=== PATIENT | male | born 1950 | race Caucasian/White ===

== ENCOUNTER 2019-07-10 08:57 | Emergency (ER) | payer MEDICARE | END 2019-07-10 11:00 | disposition home or self-care (01) | LOC: ERS 08:57 | DX: L03.011 Cellulitis of right finger (principal); I49.9 Cardiac arrhythmia, unspecified; I48.91 Unspecified atrial fibrillation; I10 Essential (primary) hypertension; J44.9 Chronic obstructive pulmonary disease, unspecified ==

== ENCOUNTER 2019-09-18 16:43 | Inpatient (IN) | payer MEDICARE ==
[2019-09-18] MEDS ORDERED: methylPREDNISolone Sod Succ/PF 125 MG/2 ML VIAL ONE (17:12)
[2019-09-18] MEDS ORDERED: Magnesium 2 GM/50 ML BAG (IN WATER) ONE (17:13)
[2019-09-18 17:17] LABS: #Basophils 0.1 thou/uL (0.0-0.2); #Eosinphils 0.2 thou/uL (0.0-0.7); #Lymphocytes 1.9 thou/uL (1.20-3.40); #Monocytes 1.1 thou/uL (0.11-0.59); %Basophils 0.5 % (0.0-1.0); %Eosinophils 1.9 % (0.0-10.0); %Lymphocytes 15.4 % (21.0-51.0); %Monocytes 8.6 % (0.0-10.0); %Neutrophils 73.6 % (42.0-75.0); Hemoglobin 12.3 g/dL (14.0-18.0); Mean Corpuscular HGB CONC 29.4 g/dL (32.0-36.0); Mean Corpuscular Hemoglobin 30.6 pg (27.0-31.0); Mean Platelet Volume 7.6 fL (7.4-10.4); Platelet Count 239 thou/uL (130-400); RBC Distribution Width 13.4 % (11.5-14.5); Red Blood Cell (RBC) Count 4.02 mill/uL (4.70-6.10); White Blood Cell (WBC) Count 12.3 thou/uL (4.8-10.8)
[2019-09-18 17:18] LABS: Actual Bicarbonate (HCO3a) 55.3 mEq/L (22-28); Analyzer IN Cardio ER; Base Excess (BEa) 24.6 mEq/L (-2.0 to +3.0); Calcium, Ionized 1.14 mmol/L (1.12-1.30); Carboxyhemoglobin (COHb) 1.6 gm% (0.0-3.0); Hemoglobin (Hb) 13.1 g/dL (14.0-18.0); Potassium - ABG Lab 3.97 mmol/L (3.70-5.30); pH, Arterial 7.38 (7.35-7.45)
[2019-09-18 17:21] LABS: CO2 Tension 94.8 mmHg (35.0-45.0); O2 Tension (PaO2) 59.7 mmHg (> 80.0)
[2019-09-18 17:22] LABS: Puncture Site RRA
--- NOTE | 2019-09-18 17:23 | RAD ---
PORTABLE AP CHEST X-RAY: 09/18/19 HISTORY: Hypoxia. COMPARISON: 06/18/19. FINDINGS: Cardiac silhouette is magnified by projection but stable in size. Pulmonary vasculature is within nor mal limits. Bullous emphysematous changes are seen in the upper lobes bilaterally, much greater in th e right upper lobe. Linear densities are seen at the right lung base probably related to chronic lung changes and crowding of the bronchovascular markings. No definite new focal area of consolidation or pleural fluid is appreciated. Lung apices are partially obscured due to the patient's overlying jaw and mandible. No other interval change. IMPRESSION: 1. Chronic lung changes and evidence of COPD. 2. No acute cardiopulmonary process. POS: OFF
[2019-09-18] MEDS ORDERED: Albuterol Sulfate 2.5 mg/3 ml Neb ONE (17:26)
[2019-09-18] MEDS ORDERED: Albuterol Sulfate 2.5 mg/0.5 ml Neb ONE (17:26)
[2019-09-18 17:40] LABS: ALT (SGPT) 8 U/L (8-55); AST (SGOT) 11 U/L (5-34); Alkaline Phosphatase 50 U/L (40-110); BUN (Urea Nitrogen) 17 mg/dL (8.4-25.7); Bilirubin, Total 0.9 mg/dL (0.2-1.2); CK (CPK) 28 U/L (30-200); Calc. Creatinine Clearance 0 mL/min (70-130); Calcium 9.9 mg/dL (7.8-10.44); Estimated GFR-MDRD Greater than 90; Globulin 3.1 g/dL (2.4-3.5); Glucose 123 mg/dL (80-115); Magnesium 1.9 mg/dL (1.6-2.6); Protein, Total 7.1 g/dL (5.8-8.1)
[2019-09-18 17:58] LABS: Chloride 80 mmol/L (98-107); Potassium 4.2 mmol/L (3.5-5.1); Sodium 142 mmol/L (136-145)
[2019-09-18 18:01] LABS: Anion Gap 14 mmol/L (10-20)
[2019-09-18 18:06] LABS: Carbon Dioxide 52 mmol/L (23-31)
[2019-09-18] MEDS ORDERED: Sodium Chloride 0.9% 1,000 ML IV SCH (20:19)
[2019-09-18] MEDS ORDERED: Acetaminophen 325 MG TAB PO PRN ×2 (20:19→20:41)
[2019-09-18 20:38] VITALS: BMI 35.7
[2019-09-18] MEDS ORDERED: Bisacodyl 10 MG SUPP PR PRN (20:41)
[2019-09-18] MEDS ORDERED: Guaifenesin DM 100-10/5 ML UDCUP PO PRN (20:41)
[2019-09-18] MEDS ORDERED: Acetaminophen 650 MG Suppository PR PRN (20:41)
[2019-09-18 20:48] LABS: Troponin I 0.019 ng/mL (< 0.028)
[2019-09-18] MEDS ORDERED: AcetaZOLAMIDE 250 MG TAB PO SCH (21:00)
--- NOTE | 2019-09-18 21:20 | HP ---
REASON FOR ADMISSION: Acute respiratory failure with hypoxia and hypercarbia, acute on chronic COPD exacerbation. HISTORY OF PRESENTING ILLNESS: The patient gives history of progressive shortness of breath from last 4 days or so. The at bedside mentions that the patient's saturations were dropping down to 60% to 65% percent at home. He is on 2.5 L of nasal cannula 24/7 oxygen. He has had home health come check on him and he was confused, in addition to his saturations being low and she called EMS and the patient was brought here. The patient does not recall what exactly happened at home. He responds to verbal questions, but is confused. He follows verbal stimuli. No fever at home. He has dry cough, but occasional expectoration of green phlegm. The at bedside mentions that the patient does not ambulate much. He is essentially bedridden for the most part. PAST MEDICAL AND SURGICAL HISTORY: History of diastolic dysfunction, had EF of 55% on an echo done in May of 2019. Chronic respiratory failure on home oxygen, COPD, obesity, chronic AFib, hypertension, dyslipidemia, and hernia repair. CURRENT MEDICATIONS: The patient is on; 1. Lasix 40 mg daily. 2. Folic acid 1 mg p.o. daily. 3. Vitamin B12 of 1000 mcg p.o. daily. 4. Pradaxa 150 mg twice daily. 5. Albuterol nebulization q.6 hourly at home. 6. Aspirin 81 mg p.o. daily. 7. Coreg 12.5 mg p.o. twice daily. 8. Cardizem 30 mg p.o. three times daily. 9. Lisinopril 2.5 mg p.o. daily. 10. Crestor 40 mg p.o. daily. 11. Flomax 0.4 mg p.o. at bedtime. ALLERGIES: NO KNOWN DRUG ALLERGIES. PERSONAL HISTORY: Quit smoking eight months back prior to which has smoked 1 to 2 packs a day for nearly 40 years. Quit drinking alcohol 4 years back. Does not abuse drugs. Lives with his . FAMILY HISTORY: Mother is alive. She has chronic medical issues per . Father in his 70s. He had unknown cancer. The patient ambulates with a rolling walker, but mostly goes in a wheelchair. CODE STATUS: Full. Power of sports attorney is his . REVIEW OF SYSTEMS: Cannot be obtained as the patient is not fully oriented. PHYSICAL EXAMINATION: GENERAL: The patient is a 68-year-old male, who is currently not in any acute distress. VITAL SIGNS: Blood pressure 102/60, pulse 74 per minute, respiratory rate 24 per minute, and saturating 69% on 3 L nasal cannula and 94% on BiPAP. NECK: Supple. No elevated JVD. HEENT: Eyes, extraocular muscles intact. Pupils are reacting to light. Oral cavity, mucous membranes are dry. No exudates or congestion. CARDIOVASCULAR SYSTEM: S1 and S2 heard. Regular rhythm. RESPIRATORY: Air entry 1+ bilateral. Scattered wheezes plus bilateral. ABDOMEN: Soft. Bowel sounds heard. No tenderness, rigidity, or guarding. EXTREMITIES: Chronic peripheral edema. No calf tenderness. VASCULAR SYSTEM: Peripheral pulses 1+ bilateral. No ischemic ulcerations or gangrene. CENTRAL NERVOUS SYSTEM: The patient is currently not oriented, but moves all extremities. He moves both upper extremities well than lower extremities. PSYCHIATRIC SYSTEM: No obvious hallucinations or delusions, but accurate psychiatric history cannot be obtained as the patient is confused at present. LABORATORY DATA: EKG done shows atrial fibrillation at 61 beats per minute. White count of 12, H and H 12 and 41, platelet count 239, and MCV is 104 with 73% neutrophils. Blood gas done shows a pH of 7.38, pCO2 of 94, and pO2 of 59. Serum bicarb is 52, BUN 17, creatinine 0.8, serum glucose 123, lactic acid 2.5, and magnesium 1.9. AST, ALT, and alkaline phosphatase within normal limits. BNP 137. Albumin is 4.0. Chest x-ray done shows no acute infiltrate. CLINICAL IMPRESSION AND PLAN: The patient will be admitted to [facility] for acute on chronic respiratory failure with hypoxia and hypercarbia, acute on chronic COPD exacerbation. He will be empirically placed on Levaquin, DuoNeb q.6 hourly, and Solu-Medrol 40 mg IV q.6 hourly. The patient's bicarb is elevated and we will place him on Diamox tablets as well. His systolic blood pressures are around 100. In view of this, we will hold lisinopril. He needs carvedilol and Cardizem in view of prior history of atrial fibrillation. We will continue his Pradaxa as before. We will consult Dr. Weaver, his pilot teacher. We will also continue his Crestor, Flomax, Dulera inhaler, folic acid, Zetia, and Pepcid as before. Echo with 2D Doppler for current LV function will be obtained. The patient has multiple medical issues and is a wheelchair bound as well. Code status was discussed with the patient and his at bedside. They say they have not decided on any other option, but for now, he will be a full code. We will also obtain Palliative Care consultation as well. Job ID: [id number]
[2019-09-18 21:27] LABS: Lactic Acid 0.9 mmol/L (0.5-2.2)
[2019-09-18] MEDS: Tamsulosin HCl 0.4 MG CAP PO SCH (21:58)
[2019-09-18] MEDS: Senokot S 8.6-50 MG TAB PO SCH (21:59)
[2019-09-18] MEDS: Famotidine 20 MG TAB PO SCH (21:59)
[2019-09-18] MEDS: Sodium Chloride 0.9% 1,000 ML IV SCH (22:02)
[2019-09-18] MEDS: Dabigatran 150 mg Capsule PO SCH (22:03)
[2019-09-18] MEDS: Carvedilol 6.25 MG TAB PO SCH (22:08)
[2019-09-19] MEDS: methylPREDNISolone Sod Succ 40 MG VIAL IVP SCH ×2 (00:04→05:49)
[2019-09-19] MEDS ORDERED: methylPREDNISolone Sod Succ 40 MG VIAL IVP SCH (05:00)
[2019-09-19 05:50] LABS: #Lymphocytes 0.8 thou/uL (1.20-3.40); #Monocytes 0.1 thou/uL (0.11-0.59); #Neutrophils 8.4 thou/uL (1.40-6.50); %Eosinophils 0.1 % (0.0-10.0); %Lymphocytes 8.7 % (21.0-51.0); %Monocytes 0.6 % (0.0-10.0); %Neutrophils 90.6 % (42.0-75.0); Hemoglobin 11.7 g/dL (14.0-18.0); Mean Corpuscular HGB CONC 30.6 g/dL (32.0-36.0); Mean Corpuscular Hemoglobin 31.3 pg (27.0-31.0); Mean Platelet Volume 7.9 fL (7.4-10.4); Platelet Count 214 thou/uL (130-400); RBC Distribution Width 13.5 % (11.5-14.5); Red Blood Cell (RBC) Count 3.75 mill/uL (4.70-6.10); White Blood Cell (WBC) Count 9.3 thou/uL (4.8-10.8)
[2019-09-19] MEDS: Sodium Chloride 0.9% 1,000 ML IV SCH (05:53)
[2019-09-19 06:13] LABS: BUN (Urea Nitrogen) 16 mg/dL (8.4-25.7); Calc. Creatinine Clearance 171 mL/min (70-130); Calcium 9.4 mg/dL (7.8-10.44); Estimated GFR-MDRD Greater than 90; Glucose 179 mg/dL (80-115)
[2019-09-19 06:22] LABS: Anion Gap 16 mmol/L (10-20); Carbon Dioxide 39 mmol/L (23-31); Chloride 87 mmol/L (98-107); Potassium 3.6 mmol/L (3.5-5.1); Sodium 138 mmol/L (136-145)
[2019-09-19] MEDS: Mometasone/Formoterol 120 PUFF INHALER INH SCH ×2 (08:01→18:38)
[2019-09-19] MEDS: Senokot S 8.6-50 MG TAB PO SCH ×2 (08:43→20:47)
[2019-09-19] MEDS: Folic Acid 1 MG TAB PO SCH (08:43)
[2019-09-19] MEDS: Dabigatran 150 mg Capsule PO SCH ×2 (08:43→20:47)
[2019-09-19] MEDS: Ezetimibe 10 MG TAB PO SCH (08:43)
[2019-09-19] MEDS: Famotidine 20 MG TAB PO SCH ×2 (08:43→20:45)
[2019-09-19] MEDS: predniSONE 20 MG TAB PO SCH ×2 (08:43→20:45)
[2019-09-19] MEDS: Rosuvastatin 20 MG TAB PO SCH (08:43)
[2019-09-19] MEDS: AcetaZOLAMIDE 250 MG TAB PO SCH (08:44)
[2019-09-19] MEDS: Aspirin Chewable 81 MG TAB PO SCH (08:44)
[2019-09-19] MEDS: Cyanocobalamin (Vitamin B-12) 1,000 MCG TAB PO SCH (08:44)
[2019-09-19] MEDS: Carvedilol 6.25 MG TAB PO SCH ×2 (08:44→20:46)
[2019-09-19] MEDS ORDERED: FLU VACC TS2019-20(65YR UP)/PF 180 MCG/0.5 ML SYRINGE IM ONE ×2 (09:00→11:00)
[2019-09-19] MEDS ORDERED: Prevnar 13-Val Conj/PF 0.5 ML SYRINGE IM ONE (09:00)
[2019-09-19] MEDS ORDERED: Furosemide 20 MG TAB PO SCH (09:00)
[2019-09-19] MEDS ORDERED: Lisinopril 2.5 MG TAB PO SCH (09:00)
--- NOTE | 2019-09-19 09:06 | CON ---
DATE OF CONSULTATION: HISTORY OF PRESENT ILLNESS: Huan Mcpherson is a 68-year-old morbidly obese gentleman with multiple medical problems, presented with shortness of breath and low oxygen saturations. Apparently some nurses called, his saturations in the 80s. He had crackles in his chest. Told him to come to the ER. His initial x-ray shows bibasilar atelectatic changes, no obvious pneumonia. This morning, he is awake, alert, and responsive. PAST MEDICAL HISTORY: 1. A former smoker, end-stage COPD with recurrent respiratory acidosis, respiratory failure. 2. Hypertension. 3. Cardiac arrhythmia, atrial fibrillation. 4. Sleep apnea. PAST SURGICAL HISTORY: Otherwise included hernia repair, ankle surgery. HOME MEDICINES: 1. Flomax 0.4. 2. Symbicort twice a day. 3. Aspirin. 4. Coreg 12.5. 5. Cardizem 30 t.i.d. 6. Pradaxa 150. 7. Lasix 40 b.i.d. 8. Folic acid 1. 9. Zestril 2.5. 10. Crestor 40. REVIEW OF SYSTEMS: Otherwise 10 point negative. PHYSICAL EXAMINATION: GENERAL: This morning, he is awake, alert, responsive. VITAL SIGNS: Saturations on 4 L are 95%, decreased to 3 L, respiratory rate 20, temperature 97, blood pressure 111/83. EXTREMITIES: Trace edema. CHEST: Decreased breath sounds, no wheezing. CARDIAC: Normal S1, S2. No gallops. ABDOMEN: No masses. LABORATORY DATA: PO2 is 59, pCO2 is 94% 3 L nasal O2, compensated respiratory acidosis. Lactic acid is mildly elevated. Lytes are normal. ASSESSMENT: Acute on chronic respiratory failure, sleep apnea, cardiac arrhythmia, morbid obesity. PLAN: He appears to be at his stable level. Switch him over to oral medication. PT, supportive care. Consultation note, 70 minutes, 50% of direct patient care. Job ID: [id number]
--- NOTE | 2019-09-19 14:42 | PDOC.HOSPP ---
- Subjective Encounter Date: 09/19/19 Encounter Time: 12:15 Subjective: is ambulating with PT in the room sob is better awake and responds to verbal stimuli - Objective Vital Signs & Weight: Vital Signs (12 hours) Temp Pulse Pulse Pulse Pulse Resp BP 09/19/19 13:40 99 20 09/19/19 11:06 98.1 F 09/19/19 10:06 88 77 09/19/19 08:44 116/63 09/19/19 08:41 89 88 09/19/19 07:57 95 20 09/19/19 07:48 09/19/19 07:27 97.2 F L 09/19/19 04:00 97.8 F BP BP Pulse Ox Pulse Ox Pulse Ox Pulse Ox 09/19/19 13:40 99 09/19/19 11:06 09/19/19 10:06 112/63 122/79 09/19/19 08:44 09/19/19 08:41 116/63 93 L 88 L 92 L 09/19/19 07:57 100 09/19/19 07:48 96 09/19/19 07:27 09/19/19 04:00 Weight Weight 271 lb 9.752 oz Most Recent Monitor Data Heart Rate from ECG 83 NIBP 120/75 NIBP BP-Mean 90 Respiration from ECG 17 SpO2 93 I&O: 09/18/19 09/19/19 09/20/19 06:59 06:59 06:59 Intake Total 1663 Output Total 860 Balance 803 Result Diagrams: 09/19/19 05:33 09/19/19 05:33 Hospitalist ROS - Medication Medications: Active Medications Generic Name Dose Route Start Last Admin Trade Name Freq PRN Reason Stop Dose Admin Acetazolamide 250 mg 09/19/19 09:00 09/19/19 08:44 Diamox PO 250 mg DAILY MEGAN Administration Albuterol/Ipratropium 3 ml 09/19/19 01:00 09/19/19 13:40 Duoneb NEB 3 ml [id number] MEGAN Administration Aspirin 81 mg 09/19/19 09:00 09/19/19 08:44 Aspirin Chewable PO 81 mg DAILY MEGAN Administration Carvedilol 12.5 mg 09/18/19 21:00 09/19/19 08:44 Coreg PO 12.5 mg BID MEGAN Administration Cyanocobalamin 1,000 mcg 09/19/19 09:00 09/19/19 08:44 Vitamin B-12 PO 1,000 mcg DAILY MEGAN Administration Dabigatran 150 mg 09/18/19 21:00 09/19/19 08:43 Pradaxa PO 150 mg BID MEGAN Administration Diltiazem HCl 30 mg 09/18/19 21:00 09/19/19 08:44 Cardizem PO 30 mg TID MEGAN Administration Ezetimibe 10 mg 09/19/19 09:00 09/19/19 08:43 Zetia PO 10 mg DAILY MEGAN Administration Famotidine 20 mg 09/18/19 21:00 09/19/19 08:43 Pepcid PO 20 mg BID MEGAN Administration Folic Acid 1 mg 09/19/19 09:00 09/19/19 08:43 Folvite PO 1 mg DAILY MEGAN Administration Mometasone Furoate/Formoterol Fumar 2 puff 09/19/19 06:30 09/19/19 08:01 Dulera 200 Mcg/5 Mcg Inhaler INH 2 puff BID-RT MEGAN Administration Prednisone 20 mg 09/19/19 09:00 09/19/19 08:43 Prednisone PO 20 mg BID MEGAN Administration Rosuvastatin Calcium 40 mg 09/19/19 09:00 09/19/19 08:43 Crestor PO 40 mg DAILY MEGAN Administration Senna/Docusate Sodium 2 tab 09/18/19 21:00 09/19/19 08:43 Senokot S PO 2 tab BID MEGAN Administration Tamsulosin HCl 0.4 mg 09/18/19 21:00 09/18/19 21:58 Flomax PO 0.4 mg HS MEGAN Administration - Exam General Appearance: NAD, awake alert Eye: PERRL, anicteric sclera ENT: no oropharyngeal lesions, moist mucosa Neck: supple, no JVD Heart: RRR, no murmur Respiratory: no wheezes, no rales, rhonchi Gastrointestinal: soft, non-tender, non-distended, normal bowel sounds Extremities: no cyanosis, 1+ LE edema Neurological: cranial nerve grossly intact, no focal deficits Psychiatric: A&O x 3 Hosp A/P (1) Acute on chronic respiratory failure with hypoxia and hypercapnia Code(s): J96.21 - ACUTE AND CHRONIC RESPIRATORY FAILURE WITH HYPOXIA; J96.22 - ACUTE AND CHRONIC RESPIRATORY FAILURE WITH HYPERCAPNIA Status: Acute (2) COPD exacerbation Code(s): J44.1 - CHRONIC OBSTRUCTIVE PULMONARY DISEASE W (ACUTE) EXACERBATION Status: Acute (3) Acute metabolic encephalopathy Code(s): G93.41 - METABOLIC ENCEPHALOPATHY Status: Resolved (4) Acute on chronic diastolic heart failure Code(s): I50.33 - ACUTE ON CHRONIC DIASTOLIC (CONGESTIVE) HEART FAILURE Status : Chronic (5) CAD (coronary artery disease) Code(s): I25.10 - ATHSCL HEART DISEASE OF [place] CORONARY ARTERY W/O ANG PCTRS Status: Chronic Qualifiers: Coronary Disease-Associated Artery/Lesion type: [place] artery [place] vs. transplanted heart: [place] heart Associated angina: without angina Qualified Code(s): I25.10 - Atherosclerotic heart disease of [place] coronary artery without angina pectoris (6) Chronic anticoagulation Code(s): Z79.01 - DRAMATIC TEACHER (CURRENT) USE OF ANTICOAGULANTS Status: Chronic (7) DM2 (diabetes mellitus, type 2) Status: Chronic Qualifiers: Diabetes mellitus mcc insulin use: without petroleum terminal plant operator use (8) Dyslipidemia Code(s): E78.5 - HYPERLIPIDEMIA, UNSPECIFIED Status: Chronic (9) HTN (hypertension) Code(s): I10 - ESSENTIAL (PRIMARY) HYPERTENSION Status: Chronic Qualifiers: Hypertension type: essential hypertension Qualified Code(s): I10 - Essential (primary) hypertension (10) Obesity (BMI 30-39.9) Code(s): E66.9 - OBESITY, UNSPECIFIED Status: Chronic - Plan is off bipap and is on nasal canula now continue nebs, prdnisone, levaquin, diamox home meds asp, coreg, pradaxa, cardizem tid, zetia, flomax, crestor, lasix bid, B12 and folic acid hemostable mobilize as tolerated dc plan in 24hrs if stable
[2019-09-19] MEDS: Tamsulosin HCl 0.4 MG CAP PO SCH (20:45)
[2019-09-20] MEDS: Mometasone/Formoterol 120 PUFF INHALER INH SCH ×2 (07:13→19:06)
[2019-09-20] MEDS: Furosemide 40 MG TAB PO SCH (09:17)
[2019-09-20] MEDS: Senokot S 8.6-50 MG TAB PO SCH ×2 (09:17→20:48)
[2019-09-20] MEDS: Folic Acid 1 MG TAB PO SCH (09:17)
[2019-09-20] MEDS: predniSONE 20 MG TAB PO SCH ×2 (09:17→20:47)
[2019-09-20] MEDS: AcetaZOLAMIDE 250 MG TAB PO SCH (09:17)
[2019-09-20] MEDS: Carvedilol 6.25 MG TAB PO SCH ×2 (09:17→21:43)
[2019-09-20] MEDS: Cyanocobalamin (Vitamin B-12) 1,000 MCG TAB PO SCH (09:17)
[2019-09-20] MEDS: Aspirin Chewable 81 MG TAB PO SCH (09:17)
[2019-09-20] MEDS: Famotidine 20 MG TAB PO SCH ×2 (09:18→20:47)
[2019-09-20] MEDS: Rosuvastatin 20 MG TAB PO SCH ×2 (09:18→20:48)
[2019-09-20] MEDS: Ezetimibe 10 MG TAB PO SCH ×2 (09:18→20:47)
[2019-09-20] MEDS: Dabigatran 150 mg Capsule PO SCH ×2 (09:18→20:46)
[2019-09-20 09:46] LABS: #Lymphocytes 0.9 thou/uL (1.20-3.40); #Monocytes 0.8 thou/uL (0.11-0.59); #Neutrophils 13.3 thou/uL (1.40-6.50); %Basophils 0.1 % (0.0-1.0); %Eosinophils 0.1 % (0.0-10.0); %Lymphocytes 5.7 % (21.0-51.0); %Monocytes 5.1 % (0.0-10.0); Hemoglobin 12.4 g/dL (14.0-18.0); Mean Corpuscular HGB CONC 30.4 g/dL (32.0-36.0); Mean Corpuscular Hemoglobin 31.5 pg (27.0-31.0); Mean Platelet Volume 7.9 fL (7.4-10.4); Platelet Count 214 thou/uL (130-400); RBC Distribution Width 13.6 % (11.5-14.5); Red Blood Cell (RBC) Count 3.94 mill/uL (4.70-6.10)
[2019-09-20 09:58] LABS: BUN (Urea Nitrogen) 18 mg/dL (8.4-25.7); Calc. Creatinine Clearance 166 mL/min (70-130); Calcium 9.7 mg/dL (7.8-10.44); Estimated GFR-MDRD Greater than 90; Glucose 230 mg/dL (80-115)
[2019-09-20 10:08] LABS: Anion Gap 14 mmol/L (10-20); Carbon Dioxide 40 mmol/L (23-31); Chloride 92 mmol/L (98-107); Potassium 3.7 mmol/L (3.5-5.1); Sodium 142 mmol/L (136-145)
--- NOTE | 2019-09-20 13:43 | PDOC.HOSPP ---
- Subjective Encounter Date: 09/20/19 Encounter Time: 12:00 Subjective: feels better, oriented well at bedside has ambulated a bit with PT - Objective Vital Signs & Weight: Vital Signs (12 hours) Temp Pulse Resp BP Pulse Ox 09/20/19 13:37 79 20 99 09/20/19 10:42 97.8 F 09/20/19 09:17 124/55 L 09/20/19 08:00 94 L 09/20/19 07:23 98.4 F 09/20/19 07:11 85 17 100 09/20/19 03:38 97.5 F L Weight Weight 271 lb 9.752 oz Most Recent Monitor Data Heart Rate from ECG 76 NIBP 117/78 NIBP BP-Mean 91 Respiration from ECG 14 SpO2 99 I&O: 09/19/19 09/20/19 09/21/19 06:59 06:59 06:59 Intake Total 1663 2000 Output Total 860 1775 200 Balance 803 225 -200 Result Diagrams: 09/20/19 09:31 09/20/19 09:31 Hospitalist ROS - Medication Medications: Active Medications Generic Name Dose Route Start Last Admin Trade Name Freq PRN Reason Stop Dose Admin Acetazolamide 250 mg 09/19/19 09:00 09/20/19 09:17 Diamox PO 250 mg DAILY MEGAN Administration Albuterol/Ipratropium 3 ml 09/19/19 01:00 09/20/19 13:37 Duoneb NEB 3 ml [id number] MEGAN Administration Aspirin 81 mg 09/19/19 09:00 09/20/19 09:17 Aspirin Chewable PO 81 mg DAILY MEGAN Administration Carvedilol 12.5 mg 09/18/19 21:00 09/20/19 09:17 Coreg PO 12.5 mg BID MEGAN Administration Cyanocobalamin 1,000 mcg 09/19/19 09:00 09/20/19 09:17 Vitamin B-12 PO 1,000 mcg DAILY MEGAN Administration Dabigatran 150 mg 09/18/19 21:00 09/20/19 09:18 Pradaxa PO 150 mg BID MEGAN Administration Diltiazem HCl 30 mg 09/18/19 21:00 09/20/19 09:17 Cardizem PO 30 mg TID MEGAN Administration Famotidine 20 mg 09/18/19 21:00 09/20/19 09:18 Pepcid PO 20 mg BID MEGAN Administration Folic Acid 1 mg 09/19/19 09:00 09/20/19 09:17 Folvite PO 1 mg DAILY MEGAN Administration Furosemide 40 mg 09/20/19 07:30 09/20/19 09:17 Lasix PO 40 mg DAILY-AC MEGAN Administration Levofloxacin 500 mg 09/20/19 06:00 09/20/19 06:27 Levaquin PO 09/25/19 06:01 500 mg 0600 MEGAN Administration Mometasone Furoate/Formoterol Fumar 2 puff 09/19/19 06:30 09/20/19 07:13 Dulera 200 Mcg/5 Mcg Inhaler INH 2 puff BID-RT MEGAN Administration Prednisone 20 mg 09/19/19 09:00 09/20/19 09:17 Prednisone PO 20 mg BID MEGAN Administration Senna/Docusate Sodium 2 tab 09/18/19 21:00 09/20/19 09:17 Senokot S PO 2 tab BID MEGAN Administration Tamsulosin HCl 0.4 mg 09/18/19 21:00 09/19/19 20:45 Flomax PO 0.4 mg HS MEGAN Administration - Exam General Appearance: NAD, awake alert Eye: PERRL, anicteric sclera ENT: no oropharyngeal lesions, moist mucosa Neck: supple, no JVD Heart: RRR, no murmur Respiratory: no wheezes, no rales, rhonchi Gastrointestinal: soft, non-tender, non-distended, normal bowel sounds Extremities: no cyanosis, no edema Neurological: cranial nerve grossly intact, no focal deficits Psychiatric: A&O x 3 Hosp A/P (1) Acute on chronic respiratory failure with hypoxia and hypercapnia Code(s): J96.21 - ACUTE AND CHRONIC RESPIRATORY FAILURE WITH HYPOXIA; J96.22 - ACUTE AND CHRONIC RESPIRATORY FAILURE WITH HYPERCAPNIA Status: Resolved (2) COPD exacerbation Code(s): J44.1 - CHRONIC OBSTRUCTIVE PULMONARY DISEASE W (ACUTE) EXACERBATION Status: Acute (3) Acute metabolic encephalopathy Code(s): G93.41 - METABOLIC ENCEPHALOPATHY Status: Resolved (4) Acute on chronic diastolic heart failure Code(s): I50.33 - ACUTE ON CHRONIC DIASTOLIC (CONGESTIVE) HEART FAILURE Status : Chronic (5) CAD (coronary artery disease) Code(s): I25.10 - ATHSCL HEART DISEASE OF [place] CORONARY ARTERY W/O ANG PCTRS Status: Chronic Qualifiers: Coronary Disease-Associated Artery/Lesion type: [place] artery [place] vs. transplanted heart: [place] heart Associated angina: without angina Qualified Code(s): I25.10 - Atherosclerotic heart disease of [place] coronary artery without angina pectoris (6) Chronic anticoagulation Code(s): Z79.01 - JAIL (CURRENT) USE OF ANTICOAGULANTS Status: Chronic (7) DM2 (diabetes mellitus, type 2) Status: Chronic Qualifiers: Diabetes mellitus termination clerk insulin use: without termination clerk use (8) Dyslipidemia Code(s): E78.5 - HYPERLIPIDEMIA, UNSPECIFIED Status: Chronic (9) HTN (hypertension) Code(s): I10 - ESSENTIAL (PRIMARY) HYPERTENSION Status: Chronic Qualifiers: Hypertension type: essential hypertension Qualified Code(s): I10 - Essential (primary) hypertension (10) Obesity (BMI 30-39.9) Code(s): E66.9 - OBESITY, UNSPECIFIED Status: Chronic - Plan is on nasal canula and stable now continue nebs, prdnisone, levaquin, diamox home meds asp, coreg, pradaxa, cardizem tid, zetia, flomax, crestor, lasix bid, B12 and folic acid hemostable mobilize as tolerated dc plan in am if ok with pulm. d/w and patient at bedside transfer to medical floor
--- NOTE | 2019-09-20 20:45 | PRG ---
DATE OF SERVICE: 09/20/2019 SUBJECTIVE: Huan Mcpherson had no complaints. He is sitting up and watching football. No distress. OBJECTIVE: VITAL SIGNS: He is afebrile. Heart rate is in 70s, respiratory rate is 20, oximetry is 92% on 3 L up to 97 this afternoon. Blood pressure 101/67. Intake and output positive . LUNGS: Clear. HEART: Regular rhythm. ABDOMEN: Soft. LABORATORY DATA: White count 15, hemoglobin 12.4, platelets 214. Sodium 142, potassium 3.7, chloride 92, bicarb 40, BUN 18, creatinine 0.74. PH on admission 7.38, pCO2 of 94, pO2 of 59. IMPRESSION: 1. Chronic hypoxemic respiratory failure with hypercarbia. 2. Advanced chronic obstructive pulmonary disease. 3. Obesity. 4. History of hypertension. 5. History of atrial fibrillation. 6. History of sleep apnea. He is stable to move out of the intermediate care unit to a medical bed. He is probably getting close to being a candidate for discharge. Job ID: [id number]
[2019-09-20] MEDS: Tamsulosin HCl 0.4 MG CAP PO SCH (20:48)
[2019-09-21 06:46] LABS: BUN (Urea Nitrogen) 23 mg/dL (8.4-25.7); Calc. Creatinine Clearance 169 mL/min (70-130); Calcium 9.7 mg/dL (7.8-10.44); Estimated GFR-MDRD Greater than 90; Glucose 176 mg/dL (80-115)
[2019-09-21 06:55] LABS: Anion Gap 10 mmol/L (10-20); Chloride 91 mmol/L (98-107); Potassium 3.3 mmol/L (3.5-5.1); Sodium 142 mmol/L (136-145)
[2019-09-21 07:01] LABS: Carbon Dioxide 44 mmol/L (23-31)
[2019-09-21] MEDS: Mometasone/Formoterol 120 PUFF INHALER INH SCH ×2 (07:49→19:55)
[2019-09-21] MEDS: Furosemide 40 MG TAB PO SCH (08:15)
[2019-09-21] MEDS: Famotidine 20 MG TAB PO SCH ×2 (08:18→20:22)
[2019-09-21] MEDS: predniSONE 20 MG TAB PO SCH ×2 (08:18→20:22)
[2019-09-21] MEDS: Folic Acid 1 MG TAB PO SCH (08:18)
[2019-09-21] MEDS: Cyanocobalamin (Vitamin B-12) 1,000 MCG TAB PO SCH (08:18)
[2019-09-21] MEDS: Senokot S 8.6-50 MG TAB PO SCH ×2 (08:18→20:22)
[2019-09-21] MEDS: Aspirin Chewable 81 MG TAB PO SCH (08:18)
[2019-09-21] MEDS: Dabigatran 150 mg Capsule PO SCH ×2 (08:19→20:21)
[2019-09-21] MEDS: Carvedilol 3.125 MG TAB PO SCH ×2 (08:19→17:24)
[2019-09-21] MEDS: AcetaZOLAMIDE 250 MG TAB PO SCH (08:19)
--- NOTE | 2019-09-21 16:52 | PDOC.HOSPP ---
- Subjective Encounter Date: 09/21/19 Encounter Time: 08:45 Subjective: is sitting on bed, no sob feels better, no dizziness sbp low this am - Objective Vital Signs & Weight: Vital Signs (12 hours) Temp Pulse Resp BP BP Pulse Ox 09/21/19 15:39 98.0 F 93 20 114/79 93 L 09/21/19 12:33 80 16 09/21/19 11:19 98.2 F 80 20 98/66 92 L 09/21/19 08:19 93 L 09/21/19 07:16 97.6 F 77 18 92/54 L 93 L Weight Weight 272 lb 5 oz Most Recent Monitor Data Heart Rate from ECG 74 NIBP 119/77 NIBP BP-Mean 91 Respiration from ECG 19 SpO2 93 I&O: 09/20/19 09/21/19 09/22/19 06:59 06:59 06:59 Intake Total 1999 240 Output Total 1775 650 Balance 225 -410 Result Diagrams: 09/20/19 09:31 09/21/19 05:38 Hospitalist ROS - Medication Medications: Active Medications Generic Name Dose Route Start Last Admin Trade Name Irvingq PRN Reason Stop Dose Admin Acetazolamide 250 mg 09/19/19 09:00 09/21/19 08:19 Diamox PO 250 mg DAILY MEGAN Administration Albuterol/Ipratropium 3 ml 09/19/19 01:00 09/21/19 12:33 Duoneb NEB 3 ml [id number] MEGAN Administration Aspirin 81 mg 09/19/19 09:00 09/21/19 08:18 Aspirin Chewable PO 81 mg DAILY MEGAN Administration Carvedilol 3.125 mg 09/21/19 08:00 09/21/19 08:19 Coreg PO 3.125 mg BID-WM MEGAN Administration Cyanocobalamin 1,000 mcg 09/19/19 09:00 09/21/19 08:18 Vitamin B-12 PO 1,000 mcg DAILY MEGAN Administration Dabigatran 150 mg 09/18/19 21:00 09/21/19 08:19 Pradaxa PO 150 mg BID MEGAN Administration Diltiazem HCl 30 mg 09/18/19 21:00 09/21/19 14:38 Cardizem PO 30 mg TID MEGAN Administration Ezetimibe 10 mg 09/20/19 21:00 09/20/19 20:47 Zetia PO 10 mg HS MEGAN Administration Famotidine 20 mg 09/18/19 21:00 09/21/19 08:18 Pepcid PO 20 mg BID MEGAN Administration Folic Acid 1 mg 09/19/19 09:00 09/21/19 08:18 Folvite PO 1 mg DAILY MEGAN Administration Levofloxacin 500 mg 09/20/19 06:00 09/21/19 05:23 Levaquin PO 09/25/19 06:01 500 mg 0600 MEGAN Administration Mometasone Furoate/Formoterol Fumar 2 puff 09/19/19 06:30 09/21/19 07:49 Dulera 200 Mcg/5 Mcg Inhaler INH Not Given BID-RT MEGAN Prednisone 20 mg 09/19/19 09:00 09/21/19 08:18 Prednisone PO 20 mg BID MEGAN Administration Rosuvastatin Calcium 40 mg 09/20/19 21:00 09/20/19 20:48 Crestor PO 40 mg HS MEGAN Administration Senna/Docusate Sodium 2 tab 09/18/19 21:00 09/21/19 08:18 Senokot S PO 2 tab BID MEGAN Administration Tamsulosin HCl 0.4 mg 09/18/19 21:00 09/20/19 20:48 Flomax PO 0.4 mg HS MEGAN Administration - Exam General Appearance: awake alert Eye: PERRL, anicteric sclera ENT: no oropharyngeal lesions, moist mucosa Neck: supple, no JVD Heart: RRR, no murmur Respiratory: no wheezes, no rales, rhonchi Gastrointestinal: soft, non-tender, non-distended, normal bowel sounds Extremities: no cyanosis, 1+ LE edema Neurological: cranial nerve grossly intact, no focal deficits Psychiatric: normal affect, A&O x 3 Hosp A/P (1) Acute on chronic respiratory failure with hypoxia and hypercapnia Code(s): J96.21 - ACUTE AND CHRONIC RESPIRATORY FAILURE WITH HYPOXIA; J96.22 - ACUTE AND CHRONIC RESPIRATORY FAILURE WITH HYPERCAPNIA Status: Resolved (2) COPD exacerbation Code(s): J44.1 - CHRONIC OBSTRUCTIVE PULMONARY DISEASE W (ACUTE) EXACERBATION Status: Acute (3) Acute metabolic encephalopathy Code(s): G93.41 - METABOLIC ENCEPHALOPATHY Status: Resolved (4) Acute on chronic diastolic heart failure Code(s): I50.33 - ACUTE ON CHRONIC DIASTOLIC (CONGESTIVE) HEART FAILURE Status : Chronic (5) CAD (coronary artery disease) Code(s): I25.10 - ATHSCL HEART DISEASE OF [place] CORONARY ARTERY W/O ANG PCTRS Status: Chronic Qualifiers: Coronary Disease-Associated Artery/Lesion type: [place] artery [place] vs. 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 ANTICOAGULANTS Status: Chronic (7) DM2 (diabetes mellitus, type 2) Status: Chronic Qualifiers: Diabetes mellitus snf insulin use: without medical terminologist use (8) Dyslipidemia Code(s): E78.5 - HYPERLIPIDEMIA, UNSPECIFIED Status: Chronic (9) HTN (hypertension) Code(s): I10 - ESSENTIAL (PRIMARY) HYPERTENSION Status: Chronic Qualifiers: Hypertension type: essential hypertension Qualified Code(s): I10 - Essential (primary) hypertension (10) Obesity (BMI 30-39.9) Code(s): E66.9 - OBESITY, UNSPECIFIED Status: Chronic - Plan is on nasal canula and stable now continue nebs, prdnisone, levaquin, diamox home meds asp, reduced dose of coreg, pradaxa, cardizem tid, zetia, flomax, crestor, B12 and folic acid hemostable mobilize as tolerated dc plan in am sbp low this am, fall precautions. Has ambulated with PT yesterday
[2019-09-21] MEDS: Rosuvastatin 20 MG TAB PO SCH (20:21)
[2019-09-21] MEDS: Tamsulosin HCl 0.4 MG CAP PO SCH (20:21)
[2019-09-21] MEDS: Ezetimibe 10 MG TAB PO SCH (20:22)
[2019-09-22] MEDS: Mometasone/Formoterol 120 PUFF INHALER INH SCH (06:48)
[2019-09-22] MEDS: Cyanocobalamin (Vitamin B-12) 1,000 MCG TAB PO SCH (08:56)
[2019-09-22] MEDS: Senokot S 8.6-50 MG TAB PO SCH (08:56)
[2019-09-22] MEDS: predniSONE 20 MG TAB PO SCH (08:56)
[2019-09-22] MEDS: Famotidine 20 MG TAB PO SCH (08:56)
[2019-09-22] MEDS: Folic Acid 1 MG TAB PO SCH (08:58)
[2019-09-22] MEDS: Aspirin Chewable 81 MG TAB PO SCH (08:58)
[2019-09-22] MEDS: Carvedilol 3.125 MG TAB PO SCH (08:58)
[2019-09-22] MEDS: AcetaZOLAMIDE 250 MG TAB PO SCH (08:58)
[2019-09-22] MEDS: Dabigatran 150 mg Capsule PO SCH (08:58)
--- NOTE | 2019-09-22 13:31 | PDOC.HOSPP ---
- Subjective Encounter Date: 09/22/19 Encounter Time: 07:40 Subjective: breathing better, feels good prefers to go home, has home health - Objective Vital Signs & Weight: Vital Signs (12 hours) Temp Pulse Resp BP Pulse Ox Pulse Ox Pulse Ox 09/22/19 11:56 98.0 F 84 20 134/89 93 L 09/22/19 11:10 84 L 92 L 09/22/19 08:00 97.5 F L 83 16 116/75 92 L 09/22/19 06:46 74 16 94 L 09/22/19 04:00 97.6 F 74 16 127/81 94 L 09/22/19 01:51 97 Pulse Ox 09/22/19 11:56 09/22/19 11:10 90 L 09/22/19 08:00 09/22/19 06:46 09/22/19 04:00 09/22/19 01:51 Weight Weight 272 lb 5 oz Most Recent Monitor Data Heart Rate from ECG 74 NIBP 119/77 NIBP BP-Mean 91 Respiration from ECG 19 SpO2 93 I&O: 09/21/19 09/22/19 09/23/19 06:59 06:59 06:59 Intake Total 240 2075 Output Total 650 1325 Balance -410 750 Result Diagrams: 09/20/19 09:31 09/21/19 05:38 Hospitalist ROS - Medication Medications: Active Medications Generic Name Dose Route Start Last Admin Trade Name Freq PRN Reason Stop Dose Admin Acetazolamide 250 mg 09/19/19 09:00 09/22/19 08:58 Diamox PO 250 mg DAILY MEGAN Administration Albuterol/Ipratropium 3 ml 09/19/19 01:00 09/22/19 12:32 Duoneb NEB 3 ml [id number] MEGAN Administration Aspirin 81 mg 09/19/19 09:00 09/22/19 08:58 Aspirin Chewable PO 81 mg DAILY MEGAN Administration Carvedilol 3.125 mg 09/21/19 08:00 09/22/19 08:58 Coreg PO 3.125 mg BID-WM MEGAN Administration Cyanocobalamin 1,000 mcg 09/19/19 09:00 09/22/19 08:56 Vitamin B-12 PO 1,000 mcg DAILY MEGAN Administration Dabigatran 150 mg 09/18/19 21:00 09/22/19 08:58 Pradaxa PO 150 mg BID MEGAN Administration Diltiazem HCl 30 mg 09/18/19 21:00 09/22/19 08:56 Cardizem PO 30 mg TID MEGAN Administration Ezetimibe 10 mg 09/20/19 21:00 09/21/19 20:22 Zetia PO 10 mg HS MEGAN Administration Famotidine 20 mg 09/18/19 21:00 09/22/19 08:56 Pepcid PO 20 mg BID MEGAN Administration Folic Acid 1 mg 09/19/19 09:00 09/22/19 08:58 Folvite PO 1 mg DAILY MEGAN Administration Levofloxacin 500 mg 09/20/19 06:00 09/22/19 06:03 Levaquin PO 09/25/19 06:01 500 mg 0600 MEGAN Administration Mometasone Furoate/Formoterol Fumar 2 puff 09/19/19 06:30 09/22/19 06:48 Dulera 200 Mcg/5 Mcg Inhaler INH 2 puff BID-RT MEGAN Administration Prednisone 20 mg 09/19/19 09:00 09/22/19 08:56 Prednisone PO 20 mg BID MEGAN Administration Rosuvastatin Calcium 40 mg 09/20/19 21:00 09/21/19 20:21 Crestor PO 40 mg HS MEGAN Administration Senna/Docusate Sodium 2 tab 09/18/19 21:00 09/22/19 08:56 Senokot S PO 2 tab BID MEGAN Administration Tamsulosin HCl 0.4 mg 09/18/19 21:00 09/21/19 20:21 Flomax PO 0.4 mg HS MEGAN Administration - Exam General Appearance: awake alert Eye: PERRL, anicteric sclera ENT: no oropharyngeal lesions, moist mucosa Neck: supple, no JVD Heart: RRR, no murmur Respiratory: no wheezes, no rales Gastrointestinal: soft, non-tender, non-distended, normal bowel sounds Extremities: no cyanosis, no edema Neurological: cranial nerve grossly intact, no focal deficits Psychiatric: normal affect, A&O x 3 Hosp A/P (1) Acute on chronic respiratory failure with hypoxia and hypercapnia Code(s): J96.21 - ACUTE AND CHRONIC RESPIRATORY FAILURE WITH HYPOXIA; J96.22 - ACUTE AND CHRONIC RESPIRATORY FAILURE WITH HYPERCAPNIA Status: Resolved (2) COPD exacerbation Code(s): J44.1 - CHRONIC OBSTRUCTIVE PULMONARY DISEASE W (ACUTE) EXACERBATION Status: Acute (3) Acute metabolic encephalopathy Code(s): G93.41 - METABOLIC ENCEPHALOPATHY Status: Resolved (4) Acute on chronic diastolic heart failure Code(s): I50.33 - ACUTE ON CHRONIC DIASTOLIC (CONGESTIVE) HEART FAILURE Status : Chronic (5) CAD (coronary artery disease) Code(s): I25.10 - ATHSCL HEART DISEASE OF [place] CORONARY ARTERY W/O ANG PCTRS Status: Chronic Qualifiers: Coronary Disease-Associated Artery/Lesion type: [place] artery [place] vs. transplanted heart: [place] heart Associated angina: without angina Qualified Code(s): I25.10 - Atherosclerotic heart disease of [place] coronary artery without angina pectoris (6) Chronic anticoagulation Code(s): Z79.01 - POLISHER EYEGLASS FRAMES (CURRENT) USE OF ANTICOAGULANTS Status: Chronic (7) DM2 (diabetes mellitus, type 2) Status: Chronic Qualifiers: Diabetes mellitus long chain beamer insulin use: without long chain beamer use (8) Dyslipidemia Code(s): E78.5 - HYPERLIPIDEMIA, UNSPECIFIED Status: Chronic (9) HTN (hypertension) Code(s): I10 - ESSENTIAL (PRIMARY) HYPERTENSION Status: Chronic Qualifiers: Hypertension type: essential hypertension Qualified Code(s): I10 - Essential (primary) hypertension (10) Obesity (BMI 30-39.9) Code(s): E66.9 - OBESITY, UNSPECIFIED Status: Chronic - Plan is on nasal canula and stable now continue nebs, prdnisone, levaquin, diamox home meds asp, reduced dose of coreg, pradaxa, cardizem tid, zetia, flomax, crestor, B12 and folic acid hemostable mobilize as tolerated dc pt home, has ambulated 160ft with rw
[2019-09-22 14:43] VITALS: BP 109/70; TEMP 97.9
--- NOTE | 2019-09-22 18:40 | DIS ---
DATE OF ADMISSION: 09/18/2019 DATE OF DISCHARGE: 09/22/2019 DISCHARGE DISPOSITION: To home with [facility]. PRIMARY DISCHARGE DIAGNOSES: Acute respiratory failure with hypoxia and hypercarbia, resolved; chronic obstructive pulmonary disease exacerbation; acute metabolic encephalopathy on arrival, resolved; acute on chronic congestive heart failure exacerbation with diastolic dysfunction, resolved; coronary artery disease; chronic anticoagulation; diabetes mellitus type 2; dyslipidemia; hypertension; obesity. PROCEDURES DONE DURING HOSPITALIZATION: The patient has had chest x-ray done, which showed chronic lung changes with evidence of COPD. Blood cultures one of two grew coag-negative Staph likely contaminant. Hemoglobin and hematocrit of 12 and 40, platelet count 214, MCV 104. Blood gas done showed a pH of 7.38 on arrival with pCO2 of 94, pO2 of 59. BNP 137. Troponin x2 negative. DISCHARGE MEDICATIONS: 1. Aspirin 81 mg p.o. daily. 2. Symbicort inhaler 2 puffs twice daily. 3. Pradaxa 150 mg twice daily. 4. Cardizem 30 mg p.o. three times daily. 5. Crestor 40 mg p.o. daily. 6. Diamox 250 mg p.o. daily for another 15 days. 7. Coreg 3.125 mg twice daily. 8. Vitamin B12 of 1000 mcg p.o. daily. 9. Folic acid 1 mg p.o. daily. 10. Lisinopril 2.5 mg p.o. daily. 11. Prednisone 10 mg twice daily for 3 days, then daily for 4 days and to discontinue. 12. Flomax 0.4 mg p.o. at bedtime. ALLERGIES: NO KNOWN DRUG ALLERGIES. INPATIENT CONSULT: Dr. Weaver for Pulmonology. DISCHARGE PLAN: The patient to follow up with his primary care physician, Dr. Lary Giordano in 1 week. He needs to follow up with Dr. Weaver in 2 weeks. BRIEF COURSE DURING HOSPITALIZATION: The patient initially was brought to emergency room by his with complaints of severe shortness of breath. He is saturating 60% to 65% on room air at home. He is usually on 2.5 L of oxygen by nasal cannula 18/06 at home. In view of this history, an initial ABG showing severe acute respiratory failure with hypoxia and hypercarbia. The patient was placed on BiPAP in IMCU. He has had slow weaning off BiPAP. He was transferred to medical floor. He was on DuoNeb, steroids, and empiric antibiotics. The patient has responded well to above measures. He was evaluated by Dr. Weaver and Dr. Marina for Pulmonology. He needs to continue steroid taper as prescribed. The patient's systolic blood pressures were in the lower 110 to 130s and his medications were optimized for the same. Once his blood pressures come back to more than 130s, he can restart his Lasix at his home dose as before. He is ambulating with physical therapy. He has ambulated nearly 160 feet with a rolling walker with therapy. [facility]. Please note, I have seen and examined the patient on the day of discharge. Job ID: [id number]
== END 2019-09-22 16:02 | disposition home health service (06) | DRG 189 ==
LOC: ERS 16:43 → IMCU/EMU 18:18 → T4-B 09-20 17:49
PROVIDERS: ADMIT Internal Medicine; ATTEND Internal Medicine
DX: J96.21 Acute and chronic respiratory failure with hypoxia (principal); G93.41 Metabolic encephalopathy; I50.33 Acute on chronic diastolic (congestive) heart failure; J44.1 Chronic obstructive pulmonary disease with (acute) exacerbation; I48.20 Chronic atrial fibrillation, unspecified; I11.0 Hypertensive heart disease with heart failure; J96.22 Acute and chronic respiratory failure with hypercapnia; Z23 Encounter for immunization; I25.10 Atherosclerotic heart disease of native coronary artery without angina pectoris; E11.9 Type 2 diabetes mellitus without complications; E78.5 Hyperlipidemia, unspecified; E66.9 Obesity, unspecified; G47.30 Sleep apnea, unspecified; Z68.35 Body mass index [BMI] 35.0-35.9, adult; Z99.81 Dependence on supplemental oxygen; Z79.82 Long term (current) use of aspirin; Z79.899 Other long term (current) drug therapy; Z87.891 Personal history of nicotine dependence
CPT/HCPCS: 36415; 71045; 80048; 80053; 82550; 82805; 83605; 83735; 83880; 84484; 85025; 85379; 87040; 87149; 90471; 90662; 90670; 93005; 94640; 94644; 94660; 94760; 96365; 96367; 96375; G0008; G0009; J1956; J2920; J2930; J3475; J7512; J7611; J7620

== ENCOUNTER 2021-06-15 08:45 | Day surgery (SDC) | payer MEDICARE ==
[2021-06-14 15:34] VITALS: BMI 37.3
== END 2021-06-15 11:40 | disposition home or self-care (01) ==
LOC: CCL 08:45
PROVIDERS: ATTEND Internal Medicine Cardiovascular Disease
PROC: B24BZZ4 Ultrasonography of Heart with Aorta, Transesophageal (ICD-10-PCS; principal; 2021-06-15)
DX: I08.3 Combined rheumatic disorders of mitral, aortic and tricuspid valves (principal); I70.0 Atherosclerosis of aorta; I48.0 Paroxysmal atrial fibrillation; I11.0 Hypertensive heart disease with heart failure; I50.32 Chronic diastolic (congestive) heart failure; I25.10 Atherosclerotic heart disease of native coronary artery without angina pectoris; J44.9 Chronic obstructive pulmonary disease, unspecified; I42.9 Cardiomyopathy, unspecified; N40.0 Benign prostatic hyperplasia without lower urinary tract symptoms; E78.5 Hyperlipidemia, unspecified; G47.33 Obstructive sleep apnea (adult) (pediatric); Z87.891 Personal history of nicotine dependence; Z79.01 Long term (current) use of anticoagulants; Z79.899 Other long term (current) drug therapy
CPT/HCPCS: 80048; 85025; 93312; J2704

== ENCOUNTER 2022-08-11 19:00 | Outpatient (CLI) | payer OTHER | END 2022-08-11 19:01 | disposition home or self-care (01) | LOC: SLEEPLAB 19:00 | PROVIDERS: ATTEND Internal Medicine Pulmonary Disease | DX: G47.33 Obstructive sleep apnea (adult) (pediatric) (principal); J44.9 Chronic obstructive pulmonary disease, unspecified; R06.83 Snoring; G47.10 Hypersomnia, unspecified; I48.91 Unspecified atrial fibrillation; E66.9 Obesity, unspecified; R09.02 Hypoxemia; I49.3 Ventricular premature depolarization; Z68.36 Body mass index [BMI] 36.0-36.9, adult | CPT/HCPCS: 95811 ==

== ENCOUNTER 2022-08-24 19:30 | Outpatient (CLI) | payer OTHER | END 2022-08-24 19:31 | disposition home or self-care (01) | LOC: SLEEPLAB 19:30 | PROVIDERS: ATTEND Internal Medicine Pulmonary Disease | DX: G47.33 Obstructive sleep apnea (adult) (pediatric) (principal); J44.9 Chronic obstructive pulmonary disease, unspecified; R09.02 Hypoxemia | CPT/HCPCS: 95811 ==

== ENCOUNTER 2022-11-16 10:12 | Emergency (ER) | payer OTHER ==
[2022-11-16 10:57] LABS: #Basophils 0.1 thou/uL (0.0-0.2); #Eosinphils 0.7 thou/uL (0.0-0.7); #Lymphocytes 1.6 thou/uL (1.20-3.40); #Neutrophils 10.7 thou/uL (1.40-6.50); %Basophils 0.6 % (0.0-1.0); %Eosinophils 5.2 % (0.0-10.0); %Neutrophils 76.3 % (42.0-75.0); Hemoglobin 12.6 g/dL (14.0-18.0); Mean Corpuscular HGB CONC 32.7 g/dL (32.0-36.0); Mean Corpuscular Hemoglobin 32.2 pg (27.0-31.0); Mean Corpuscular Volume 98.5 fl (78.0-98.0); Mean Platelet Volume 8.1 fL (7.4-10.4); Platelet Count 292 10x3/uL (130-400); RBC Distribution Width 13.1 % (11.5-14.5); Red Blood Cell (RBC) Count 3.92 mill/uL (4.70-6.10); White Blood Cell (WBC) Count 14.1 10x3/uL (4.8-10.8)
[2022-11-16 11:08] LABS: ALT (SGPT) 14 U/L (8-55); AST (SGOT) 15 U/L (5-34); Alkaline Phosphatase 58 U/L (40-110); Anion Gap 16 mmol/L (10-20); BUN (Urea Nitrogen) 36 mg/dL (8.4-25.7); Bilirubin, Total 0.7 mg/dL (0.2-1.2); Calc. Creatinine Clearance 0 mL/min (70-130); Calcium 9.6 mg/dL (7.8-10.44); Carbon Dioxide 28 mmol/L (23-31); Chloride 95 mmol/L (98-107); Estimated GFR 52; Globulin 3.2 g/dL (2.4-3.5); Glucose 168 mg/dL (83-110); Potassium 4.2 mmol/L (3.5-5.1); Protein, Total 7.2 g/dL (5.8-8.1); Sodium 135 mmol/L (136-145)
[2022-11-16 11:31] LABS: Bilirubin Negative (Negative); Blood, Urine Negative (Negative); Clarity Clear (Clear); Glucose, Urine (Dipstick) Normal (Negative); Ketone, Urine Negative (Negative); Leukocyte Negative Leu/uL (Negative); Nitrite Negative (Negative); Protein, Urine (Dipstick) Negative (Neg-Trace); Specific Gravity, Urine 1.019 (1.002-1.036); Urobilinogen Normal mg/dL (Less than 2); pH, Urine 7.5 (5.0-9.0)
== END 2022-11-16 13:36 | disposition home or self-care (01) ==
LOC: ERS 10:12
DX: R31.0 Gross hematuria (principal); J44.9 Chronic obstructive pulmonary disease, unspecified; I10 Essential (primary) hypertension; Z79.899 Other long term (current) drug therapy
CPT/HCPCS: 71045; 74176; 80053; 81003; 83690; 84484; 85025; 93005; 94760